=== PATIENT | female | born 1950 | race Caucasian/White ===

== ENCOUNTER 2016-07-14 01:57 | Day surgery (SDC) | payer MEDICARE, MEDICAID ==
[~2016-07-14] VITALS: Ht 157.5 cm; Wt 122.9 kg
[2016-07-14] VITALS (13 sets, daily range): BP systolic 121–169; BP diastolic 47–73; Ht 157.5 cm; Wt 122.9 kg
[~2016-07-14 01:57] MED LIST: COZAAR100 MG PO; HCTZ25 MG PO; HYDROCODON-ACE1 EAC7 PO; NAPROSYN500 MG PO; NORVASC5 MG PO; PROTONIX40 MG PO; ZANTAC150 MG PO; ZOFRAN ODT4 MG/UDTAB PO
[2016-07-14 03:33] LABS: BASOPHILS 0.1 % (0.0-2.0); EOSINOPHILS 0.4 % (0-7); HEMATOCRIT 39.3 % (36.0-48.0); HEMOGLOBIN 12.6 g/dL (12-16); IMMATURE GRANULOCYTES 0.3 % (0-5); LYMPHOCYTES 12.5 % (15-50); MCH 28.4 pg (26.0-34.0); MCHC 32.1 g/dL (31.0-37.0); MCV 88.7 fL (80.0-100.0); MEAN PLATELET VOLUME 11.1 fL (7.4-10.4); MONOCYTES 4.7 % (2-11); PLATELET COUNT 207 10x3/uL (130-400); RBC 4.43 10x6/uL (4.00-5.40); RDW 13.9 % (11.5-14.5); WBC 10.4 10x3/uL (4.8-10.8)
[2016-07-14 03:41] LABS: ALBUMIN 3.3 g/dL (3.4-5.0); ALKALINE PHOSPHATASE 83 U/L (46-116); ALT (SGPT) 42 U/L (10-68); AMYLASE - SERUM 64 U/L (25-115); BILIRUBIN - TOTAL 0.32 mg/dL (0.2-1.3); CALC OSMOLALITY 294 mosm/kg (275-300); CALCIUM 8.9 mg/dL (8.5-10.1); CARBON DIOXIDE 29.9 mmol/L (21.0-32.0); CHLORIDE - SERUM 105 mmol/L (98-107); CREATININE - SERUM 0.8 mg/dL (0.6-1.3); LIPASE 130 U/L (73-393); POTASSIUM - SERUM 3.4 mmol/L (3.5-5.1); PROTEIN - SERUM 7.4 g/dL (6.4-8.2); SODIUM 143 mmol/L (136-145); UREA NITROGEN 26 mg/dL (7-18); eGFR NON AFRICAN AMERICAN 76 mL/min (90-120)
[2016-07-14 03:43] LABS: GLUCOSE 181 mg/dL (74-106)
--- NOTE | 2016-07-14 09:30 | NUR ---
RECEIVED TO ROOM 2219 VIA STRETCHER FROM ER. A/O X 3. FAMILY AT BEDSIDE. DENIES NEEDS. SKIN WNL.
--- NOTE | 2016-07-14 12:00 | NUR ---
RESTING QUIETLY WITH EYES CLOSED. FAMILY AT [facility].
--- NOTE | 2016-07-14 14:18 | NUR ---
UP TO BR PER SELF. NO C/O AT THIS TIME.DENIES NEEDS..
--- NOTE | 2016-07-14 16:40 | NUR ---
OFF UNIT VIA BED FOR SURGERY. FAMILY IN ROOM.
--- NOTE | 2016-07-14 19:00 | NUR ---
RETURNED FROM SURGERY. A/O X3. NO C/O AT THIS TIME. FAMILY AT BEDSIDE. DENIES NEEDS. TATO TO LEFT LOWER ABDOMEN PATENT WITH CLEAR FLUIDS.
[2016-07-15 00:45] VITALS: BP 112/45
[2016-07-15 04:00] VITALS: BP 114/51
--- NOTE | 2016-07-15 07:47 | NUR ---
AWAKE AND ALERT. ORIENTED X3. NO C/O PAIN OR DISCOMFORT THIS AM. LUNGS ARE CLEAR BILATERALLY, NO COUGH NOTED. SKIN IS INTACT WITHOUT REDNESS EXCEPT 2 SMALL INSERTION SITES TO ABDOMEN WHICH HAVE DRY INTACT DRESSINGS IN PLACE. TATO TO LOWER LEFT ABDOMEN PATENT WITH SEROUS SANGUINESS DRAINAGE NOTED. BOWEL SOUNDS PRESENT X4 BUT HYPOACTIVE. PATIENT REPORTS PASSING GAS. IV TO RIGHT FOREARM PATENT WITHOUT REDNESS AT ISNERTION SITE. DENIES NEEDS.
[2016-07-15 07:50] VITALS: BP 111/51
--- NOTE | 2016-07-15 10:00 | NUR ---
SHOWERED WITH SET UP ASSISTANCE. AMBULATED 500 FEET PER SELF WITHOUT DIFFICULTY. NO C/O AT THIS TIME.
--- NOTE | 2016-07-15 12:30 | NUR ---
LUNCH SERVED IN ROOM. ATE MOST OF MEAL PER FAMILY. DNEIES NEEDS.
[2016-07-15 13:01] VITALS: BP 129/56
[2016-07-15 15:34] VITALS: BP 146/68
--- NOTE | 2016-07-15 16:43 | NUR ---
RESTING QUIETLY IN BED AFTER WALKING OVER 2000 FEET. NO C/O AT THIS TIME. DENIES NEEDS.
--- NOTE | 2016-07-15 18:56 | NUR ---
UP WALKING AROUND, STATES SHE HAS VERY LITTLE PAIN
[2016-07-15] MEDS ORDERED: HYDROCODON-ACE1 EAC7 PO (19:42)
--- NOTE | 2016-07-15 20:37 | NUR ---
PT DISCHARGED HOME. DISCHARGE TEACHING PER DC FORM. DERRICK SCRIPT HOME WITH PT SHE IS TO F/U WITH [facility] IN 2 WEEKS. OFF THE FLOOR AT THIS TIME.
--- NOTE | 2016-07-22 09:40 | HP ---
PATIENT: ROXY JETER MEDICAL RECORD: [id number] ACCOUNT: [id number] LOCATION:[facility] : 52 ADMISSION DATE: 07/14/16 HISTORY AND PHYSICAL EXAMINATION CHIEF COMPLAINT: Pain. HISTORY OF PRESENT ILLNESS: The patient presented to the Emergency Room with abdominal pain. It was initially generalized and now localized to the right lower quadrant. It is colicky in nature. The patient is able to speak some Hungarian. Discussed risks, possible complications and alternatives to laparoscopic appendectomy, possible open procedure with the patient. She elects to proceed. Symptoms are moderate intensity. Palpation aggravates. Nothing alleviates. PAST MEDICAL AND SURGICAL HISTORY: Gastric sleeve resection. HOME MEDICATIONS: None. ALLERGIES: No known drug allergies. FAMILY HISTORY: Noncontributory. REVIEW OF SYSTEMS: Positive for abdominal pain and positive for nausea. No vomiting. No headache, no chest pain. Review of systems is negative other than as is described above. PHYSICAL EXAMINATION: GENERAL: The patient does not appear acutely ill. She does not appear chronically ill. VITAL SIGNS: Reviewed. HEAD: External ears appear normal. EYES: Extraocular movements are intact. NECK: Trachea is midline. CHEST: No intercostal retractions. PULMONARY: Nonlabored, no stridor. ABDOMEN: Right lower quadrant tenderness with guarding. EXTREMITIES: No peripheral cyanosis. INTEGUMENT: No rash, no ulcerations. PSYCHIATRIC: Normal affect. BACK: No thoracic kyphosis. I have personally reviewed the CT images. IMPRESSION: Acute appendicitis. PLAN: Laparoscopic appendectomy, possible open procedure. TRANSINT:[id number] Voice Confirmation ID: [id number] DOCUMENT ID: [id number] HISTORY AND PHYSICAL [id number] ROXY JETER ROBERT MD at 0940 CC: ALEXY BRICE DO [id number] DICTATION DATE: 07/14/16 1644 CONSTRUCTION FLAGGER: 07/14/161933 [facility] 07/15/16 [id number] [place] [address]
--- NOTE | 2016-07-22 09:40 | DS ---
PATIENT:ROXY JETER :52 MEDICAL RECORD: [id number] DISCHARGE SUMMARY ADMISSION DATE: 07/14/16 DISCHARGE DATE: 07/15/16 PRINCIPAL DIAGNOSIS: Acute appendicitis. PRINCIPAL PROCEDURE: Laparoscopic appendectomy. HOSPITAL COURSE: The patient was admitted through the Emergency Room. She underwent the above operative procedure. She did well postoperatively. Her drain was removed prior to dismissal. She is being dismissed home on [address] for pain. I will see her in the office in 2-3 weeks. TRANSINT:[id number] Voice Confirmation ID: [id number] DOCUMENT ID: [id number] JASON WIN MD at 0940 CC: [id number] DICTATION DATE: 07/15/161900 RESIDENTIAL PROPERTY TAX APPRAISER: 07/16/16 0821 [facility] 07/15/16 [facility] [address] [place] [address]
--- NOTE | 2016-07-22 09:40 | OP ---
PATIENT NAME: ROXY JETER MEDICAL RECORD: [id number] :52 LOCATION:D[facility] ADMISSION DATE: SURGEON: JASON WIN MD DATE OF OPERATION: 07/14/2016 PREOPERATIVE DIAGNOSIS: Acute appendicitis. POSTOPERATIVE DIAGNOSES: Acute appendicitis without rupture or abscess, and central abdominal adhesions. PROCEDURE: Laparoscopic appendectomy. SURGEON: Jason Win MD. JANITOR AND CLEANER: None. BLOOD LOSS: Minimal. ANESTHESIA: General. DRAINS: A 10-St Lucian round Keshawn drain times 1. COMPLICATIONS: None. The risks, possible complications and alternatives to procedure were explained to the patient. She elects to proceed. OPERATIVE COURSE: The patient was conveyed to the operating room electively on 07/14/2016. General anesthesia was induced by the anesthesia staff. The abdomen was sterilely prepped and draped. An incision was accomplished in the left upper quadrant. Through this incision, I advanced the Optiview trocar into the peritoneal cavity. CO2 insufflation was begun. Once a sufficient pneumoperitoneum had been achieved under direct vision with a television camera, another 5-mm trocar was inserted this time in the left lower quadrant. Some central adhesions, which were omental adhesions to the anterior abdomen, were then lysed with the EnSeal device. A 12-mm trocar was inserted through an incision at the umbilicus. During insertion of the trocars, there was no apparent injury to the bowels, any intraperitoneal or retroperitoneal structures. The appendix was identified. It was bluntly dissected from surrounding structures. A window was created in the mesoappendix. I then took down the mesoappendix utilizing the EnSeal device. I then stapled across the tip of the cecum with an Endo-CLEO type stapler utilizing a blue load. The appendix was placed within an Endobag retrieval device and was withdrawn through the umbilical fascia defect. A 12-mm trocar was replaced and the abdomen reinsufflated. I irrigated and aspirated the right lower quadrant. There was no bleeding even at low pressure of 8. The fascia of the umbilicus was closed with a Derek-Camilo suture closure device and a 0 Vicryl suture. A 10-St Lucian round Keshawn drain was advanced through the left lower quadrant trocar. All trocars were removed and the OPERATIVE REPORT [id number] ROXY JETER abdomen desufflated. The skin at the umbilicus was closed with interrupted 4-0 Vicryl Rapide sutures. The drain was sutured to the skin with a 2-0 silk suture. The trocar sites were then closed with interrupted intracuticular 3-0 Vicryls. Sterile dressings were applied. The patient was then extubated and conveyed to post-anesthesia care unit where she was in stable condition. TRANSINT:[id number] Voice Confirmation ID: [id number] DOCUMENT ID: [id number] JASON WIN MD at 0940 CC: ALEXY BRICE DO, RON OVIEDO MD and PERLA MENDEZ MD [id number] DICTATION DATE: 07/14/161921 ACADEMIC RECORDS SPECIALIST: 07/15/16 0029 [facility] 07/15/16 [facility] [address] [place] [address]
== END 2016-07-15 20:39 | disposition home or self-care (01) ==
LOC: OBSVTIME → D.ER 01:57 → D.OPS 01:57 → D.MS 06:07 → D.ER 06:07 → D.MS 06:07 → OBSVTIME 06:07 → D.OPS 06:07 → D.MS 08:09 → D.M3 08:09 → D.MS 08:21 → EDSTATUS 15:00 → D.MS 15:46 → D.OPS 07-15 20:39
PROVIDERS: Family Medicine
DX: K35.80 Unspecified acute appendicitis (principal); Z98.84 Bariatric surgery status

== ENCOUNTER → 2016-07-27 07:44 | Outpatient (CLI) | payer MEDICARE, MEDICAID ==
[2016-07-27 08:12] LABS: BASOPHILS 0.1 % (0.0-2.0); EOSINOPHILS 1.8 % (0-7); HEMATOCRIT 38.9 % (36.0-48.0); HEMOGLOBIN 12.6 g/dL (12-16); IMMATURE GRANULOCYTES 0.2 % (0-5); LYMPHOCYTES 22.9 % (15-50); MCH 28.8 pg (26.0-34.0); MCHC 32.4 g/dL (31.0-37.0); MCV 88.8 fL (80.0-100.0); MEAN PLATELET VOLUME 10.8 fL (7.4-10.4); RBC 4.38 10x6/uL (4.00-5.40); RDW 13.8 % (11.5-14.5); WBC 8.4 10x3/uL (4.8-10.8)
[2016-07-27 08:21] LABS: CREATININE - SERUM 0.8 mg/dL (0.6-1.3)
[2016-07-27 08:23] LABS: PLATELET COUNT 261 10x3/uL (130-400)
== END | disposition home or self-care (01) ==
LOC: D.LAB 07-19 10:18
PROVIDERS: Surgery
DX: Z00.00 Encounter for general adult medical examination without abnormal findings (principal); E66.01 Morbid (severe) obesity due to excess calories; E78.5 Hyperlipidemia, unspecified; I10 Essential (primary) hypertension

== ENCOUNTER 2016-07-27 08:00 | Outpatient (CLI) | payer MEDICARE, MEDICAID | END 2016-07-27 23:59 | disposition home or self-care (01) | LOC: D.MAMMO 08:00 | DX: Z12.31 Encounter for screening mammogram for malignant neoplasm of breast (principal); Z00.00 Encounter for general adult medical examination without abnormal findings; E66.01 Morbid (severe) obesity due to excess calories; E78.5 Hyperlipidemia, unspecified; I10 Essential (primary) hypertension ==

== ENCOUNTER → 2016-11-08 14:05 | Outpatient (CLI) | payer MEDICARE, MEDICAID ==
[2016-11-08 14:42] LABS: BASOPHILS 0.1 % (0-2); EOSINOPHILS 2.1 % (0-7); HEMATOCRIT 38.7 % (36.0-48.0); HEMOGLOBIN 13.2 g/dL (12-16); IMMATURE GRANULOCYTES 0.2 % (0-5); LYMPHOCYTES 22.5 % (15-50); MCH 30.6 pg (26.0-34.0); MCHC 34.1 g/dL (31.0-37.0); MCV 89.6 fL (80.0-100.0); MEAN PLATELET VOLUME 11.4 fL (7.4-10.4); NEUTROPHILS 69.1 % (40-80); RBC 4.32 10x6/uL (4.00-5.40); RDW 13.4 % (11.5-14.5); WBC 9.6 10x3/uL (4.8-10.8)
[2016-11-08 14:47] LABS: PLATELET COUNT 179 10x3/uL (130-400)
[2016-11-08 15:19] LABS: ALBUMIN 3.5 g/dL (3.4-5.0); ANION GAP 12.1 mmol/L (8-16); BILIRUBIN - TOTAL 0.44 mg/dL (0.2-1.3); CARBON DIOXIDE 29.6 mmol/L (21.0-32.0); CHOL - HDL RATIO 2.3 ratio (2.3-4.1); CREATININE - SERUM 1.1 mg/dL (0.6-1.3); LDL-HDL RATIO 1.1 ratio (1.5-3.5); POTASSIUM - SERUM 3.7 mmol/L (3.5-5.1); PROTEIN - SERUM 6.9 g/dL (6.4-8.2)
[2016-11-10 10:18] LABS: VITAMIN D 25 HYDROXY 30.1 ng/mL (30.0-100.0)
== END | disposition home or self-care (01) ==
LOC: D.LAB 14:05
PROVIDERS: Surgery
DX: Z00.00 Encounter for general adult medical examination without abnormal findings (principal); E78.5 Hyperlipidemia, unspecified; M81.0 Age-related osteoporosis without current pathological fracture

== ENCOUNTER 2018-12-17 08:00 | Outpatient (CLI) | payer MEDICARE, MEDICAID | END 2018-12-17 23:59 | disposition home or self-care (01) | LOC: D.MAMMO 08:00 | PROVIDERS: ATTEND Family Medicine | DX: Z12.31 Encounter for screening mammogram for malignant neoplasm of breast (principal) ==